=== PATIENT | female | born 1970 | race Caucasian/White ===

== ENCOUNTER 2018-04-01 08:00 | Outpatient (CLI) | payer OTHER ==
[2018-04-01 13:25] LABS: THYROID STIMULATING HORMONE 3.83 uIU/mL (0.34-5.60)
[2018-04-01 13:27] LABS: FREE T4 (FREE THYROXINE) 0.97 ng/dL (0.58-1.64)
== END 2018-04-01 08:01 ==
LOC: LAB.WCP 08:00
PROVIDERS: ATTEND Family Medicine
DX: E03.9 Hypothyroidism, unspecified (principal)
CPT/HCPCS: 36415; 84439; 84443; 84481

== ENCOUNTER 2018-04-09 17:54 | Emergency (ER) | payer OTHER ==
--- NOTE | 2018-04-09 19:15 | ED Physician Documentation ---
PD HPI UPPER EXT INJURY - Stated complaint Stated Complaint: LT FINGER LAC - Chief complaint Chief Complaint: Laceration - History obtained from History obtained from: Patient - History of Present Illness Location: Left, Finger (index finger tip) Type of injury: Laceration (cut tip of finger with feather trimmer. Small lacerations at tip and gouge into end of nail.) Where injury occurred: Home Timing - onset: Today Timing - details: Abrupt onset Worsened by: Palpating Associated symptoms: No: Weakness, Numbness Similar symptoms before: Has not had sx before Recently seen: Not recently seen Review of Systems Skin: reports: Laceration (s) Neurologic: denies: Focal weakness, Numbness PD PAST MEDICAL HISTORY - Past Medical History Endocrine/Autoimmune: None Musculoskeletal: None - Present Medications Home Medications: Ambulatory Orders Medication Instructions Recorded Confirmed Paroxetine HCl [Paxil] 1 tab PO DAILY 04/09/18 04/09/18 - Allergies Allergies/Adverse Reactions: Allergies Allergy/AdvReac Type Severity Reaction Status Date / Time No Known Drug Allergies Allergy Verified 04/09/18 21:17 PD ED PE NORMAL - Vitals Vital signs reviewed: Yes - General General: Alert and oriented X 3, Well developed/nourished - Derm Derm: Normal color, Warm and dry - Extremities Extremities: Other (left index finger tip with several small lacerations just full thickness but with skin pieces still in place. There is defect of end of nail down the middle c/w blade width. It does not go to the base of the nail proximally. ) - Neuro Neuro: Alert and oriented X 3, No motor deficit, No sensory deficit Results - Vitals Vitals: Oxygen O2 Source Room air - Rads (name of study) finger xray Radiology: Prelim report reviewed, EMP read contemporaneously (just a slight defect in tuft end.) PD MEDICAL DECISION MAKING - ED course Complexity details: reviewed results (slight defect in tuft end, so looks like the blade just impacted the bone, but no significant fracture per se. ), considered differential (the small lacs close together would be hard to sew, and can be held adequately by just taping and gluing over the tip of the finger to hold them all in place. She cah trim the nail back at home so it is not in the way, and the nail will grow out from the base fine. ), d/w patient - Sepsis Event Vital Signs: Oxygen O2 Source Room air Departure - Departure Disposition: 01 Home, Self Care Clinical Impression: Finger laceration Qualifiers: Encounter type: initial encounter Finger: index finger Damage to nail status: with damage Foreign body presence: without foreign body Laterality: left Qualified Code(s): S61.311A - Laceration without foreign body of left index finger with damage to nail, initial encounter Condition: Stable Record reviewed to determine appropriate education?: Yes Instructions: ED Laceration Hand Follow-Up: Akua Dawkins MD [Primary Care Provider] - Comments: Keep the area clean and dry. Allow the Steri-Strips and glue to fall off on their own over several days or more. The wound should seal together during that timeframe. Tylenol or ibuprofen if needed for pain. Recheck if signs of infection. There is a small nipple of injury at the end of the bone but no fracture per se. This will heal up okay but just be sensitive for a couple of weeks. Discharge Date/Time: 04/09/18 20:50
--- NOTE | 2018-04-09 19:38 | XRAY Report ---
Procedure Date: 04/09/2018 Accession Number: [id number] / [id number] Procedure: XR - Finger(s) LT CPT Code: FULL RESULT: EXAM: LEFT SECOND DIGIT RADIOGRAPHY EXAM DATE: 04/09/2018 07:11 PM. CLINICAL HISTORY: Hedgetrimmer vs finger, deformed. COMPARISON: None. TECHNIQUE: 3 views. FINDINGS: Bones: There is irregularity of the distal tuft on the oblique image. No intra-articular fracture. Joints: Normal. No subluxations. Soft Tissues: Normal. No soft tissue swelling. IMPRESSION: Suspicious for a nondisplaced fracture involving the distal tip of the second distal phalanx tuft. RADIA
[2018-04-09] MEDS ORDERED: TETANUS/DIPHTHERIA/PERTUSSIS 0.5 ML SYRINGE IM ONE (21:13)
[2018-04-09 21:26] VITALS: BP 131/81
== END 2018-04-09 20:50 | disposition home or self-care (01) ==
LOC: ED 17:54
DX: S61.311A Laceration without foreign body of left index finger with damage to nail, initial encounter (principal); W29.3XXA Contact with powered garden and outdoor hand tools and machinery, initial encounter
CPT/HCPCS: 73140; 90471; 99283

== ENCOUNTER 2019-07-15 15:32 | Outpatient (CLI) | payer MEDICAID ==
--- NOTE | 2019-07-30 09:09 | Mammography Report ---
Reason: ROUTINE MAMMO Procedure Date: 07/15/2019 Accession Number: [id number] / [id number] Procedure: [facility] - Screening Mammo Dig Bilat CPT Code: Final Report FULL RESULT: EXAM: Screening Mammo Dig Bilat DATE: 07/15/2019 3:55 PM CLINICAL HISTORY: Screening encounter. TECHNIQUE: (B) - Bilateral CC and MLO views were obtained. COMPARISON: None. PARENCHYMAL PATTERN: (A) - The breast(s) demonstrate(s) scattered fibroglandular densities. FINDINGS: In the left upper outer breast approximately 8 cm from the nipple along the axillary tail are 3 isodense partially obscured nodules measuring up to 0.8 cm. These require additional characterization by ultrasound examination and spot mammographic views ideally with 3-D mammography unless 2 year stability can be demonstrated on previous examinations were this finding has been previously completely characterized. There are no suspicious masses, calcifications, or areas of distortion in the right breast. IMPRESSION: Incomplete examination. BI-RADS category 0. RECOMMENDATION: (ADDUS) - Targeted ultrasound recommended. Left breast. Please note that additional examination may potentially be obviated if prior comparison mammograms can be made available. BI-RADS CATEGORY: (0) - Incomplete Examination - need additional evaluation. STANDARD QUALIFYING STATEMENTS: 1. This examination was not reviewed with the aid of Computer-Aided Detection (CAD). 2. A negative or benign imaging report should not preclude biopsy if clinically suspicious findings are present. 3. Dense breasts may obscure an underlying neoplasm. 4. This examination was reviewed without the aid of 3D breast imaging (tomosynthesis).
== END 2019-07-15 15:33 | disposition home or self-care (01) ==
LOC: DI 15:32
PROVIDERS: ATTEND Family Medicine
DX: Z12.31 Encounter for screening mammogram for malignant neoplasm of breast (principal); R92.8 Other abnormal and inconclusive findings on diagnostic imaging of breast
CPT/HCPCS: 77067

== ENCOUNTER 2019-07-24 08:00 | Outpatient (CLI) | payer MEDICAID | END 2019-07-24 23:59 | disposition home or self-care (01) | LOC: LAB.R 08:00 | PROVIDERS: ATTEND Obstetrics & Gynecology | DX: R30.0 Dysuria (principal) | CPT/HCPCS: 87086 ==